=== PATIENT | male | born 1975 | race African-American/Black ===

== ENCOUNTER 2018-04-18 12:51 | Emergency (ER) | payer MEDICAID, OTHER ==
[~2018-04-18] VITALS: Ht 182.9 cm; Wt 88.5 kg
[2018-04-18 13:05] VITALS: BP 111/74
== END 2018-04-18 13:41 | disposition home or self-care (01) ==
LOC: ER 12:58
DX: B35.3 Tinea pedis (principal); L84 Corns and callosities; F17.210 Nicotine dependence, cigarettes, uncomplicated
CPT/HCPCS: 82962